=== PATIENT | female | born 2000 | race Two or more races ===

== ENCOUNTER 2021-06-26 08:45 | Emergency (ER) | payer SELFPAY ==
[~2021-06-26] VITALS: Ht 165.1 cm; Wt 54.4 kg
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
--- NOTE | 2021-06-26 12:15 | NUR ---
Patient discharged to home in stable condition. Written and verbal after care instructions given. Patient verbalizes understanding of instruction.
[2021-06-26 12:16] VITALS: BP 111/76
--- NOTE | 2021-06-26 12:17 | NUR ---
"Pt. Is a 21-year-old female who came from sober living facility [[facility]] for aggressive behavior towards staff. Pt. was oriented x3, alert, and hardly cooperative. During interview, pt. was capable of following directions, made appropriate eye-contact, and appeared well-groomed. Pt.s speech was at a normal rate and pt.s mood irritable. Pt. reported no hx of mental health, substance abuse, suicidal ideation, or homicidal ideation. Pt. denies auditory hallucinations, visual hallucinations, paranoia, or delusions. MARIO explored pt.s living situation. Per pt., she resides at a sober living facility. Pt. stated that she has problems with her roommate and wants a new sober living. SW provided pt. with a list of women sober living. Pt. would have to call for interview. Pt. does not meet criteria for a 5150 hold. Pt. expressed that she wants to go back to her previous sober living facility. Pt. stated that she will take the bus back to facility, MARIO provided pt. with TAP card. Plan: MARIO provided available resources and pt. accepted. Upon discharge, per pt., she will return back to previous facility [[address] [place] [address]]. Resources Provided: Winter Shelters: SPA 2 | [facility] Al[facility]av[facility]: [facility] Address: Confidential (call for location ) Population Served: Coed # of Beds: 57 SPA 4 | [facility] Provider: Home at Last Address: [address] [id number] # of Beds: 49 Population Served: Coed SPA 6 | [facility] Provider: Home at Last Address: [address] [facility] [address] # of Beds: 49 Population Served: Nilsond [facility] Provider: Mikala Russo ARSterling Address: [address] [facility] [address] # of Beds: 20 Population Served: Women [facility] Facility Provider: Home at Last Address: [address] [facility] [address] # of Beds: 30 Population Served: [facility] SPA 8 | [facility] Provider: [facility] Address: [address] [facility] [address] # of Beds: 65 Population Served: Coed Year-round shelters: [place] [address] [place] [address] ; [place] [facility] [address] [place] [address]; [facility] [facility] [address] [facility] [address] Winter Shelters: [facility] Provider: [facility] [place] Address: [address], [address] # of Beds: 47 Population Served: Coed SPA 6 | [facility] Kandace Cohn Gordon Provider: Home at Last Address: [address] [place] [address], [address] # of Beds: 66 Population Served: Coed Samish Gordon Provider: [facility] Address: [address] [facility], [address] # of Beds: 56 Population Served: [facility] [place] [place] Provider: /[facility] Address: [address] [facility], [address] # of Beds: 49 Population Served: Coed SPA 8 | [facility] Provider: First to Serve Address: [address] [facility], [address] # of Beds: 37 Population Served: [facility] Hygiene: [facility]: [address] [place] ; [facility] [facility] [address] [facility] ; [facility] [address] Find[address]Rafael Barrera . Food Resources: [place] [facility] at [facility]- [address] [place]; Meet Each Need with Dignity (MEND) [address] John Aguerooima; [facility] [address] [facility]; [facility] [address] [facility]. Mental Health resources provided: [facility] [address] [place], [place] [address] ; [facility] [address] [facility] [address], [place] [address] ; [facility] [address] [place], [place] [id number] ; [facility] [place], [place] [address] Healthcare Clinics: [facility] [address] [facility], [address] [place]. [place] ; [facility] [address] [facility] [address] [place] [address]; [facility] [place] [address] [facility] [place] [address] [phone] Counseling--Outpatient [facility] [address] [facility], [place] [address] (Specializes in in-depth psychotherapy for emotional distress: anxiety, depression, interpersonal conflicts, life transitions, childhood abuse) [facility] [address] [place] [address] (Assist with solving problem marital difficulties, separation & divorce, aging parents, & grief, chronic & terminal illness) [facility] [address] [place] [address] (Deal with loss & grief, anxiety, marital difficulties) Homebound/Mental Health Services [address] [facility], [address] [place], [place] [address] (Provide in-home mental services to people who are incapable of leaving their homes) [facility] Elder[facility] Senior Service/Resource Center [address] [place] [address] [facility] [address] Emory Rosemary. [facility] [place] [address] PSYCHIATRIC OUTPATIENT SERVICES [facility] Partial Hospitalization and Intensive Outpatient Program (Managed Care and [place] Only)[address] [place] [address] [facility] [phone] [facility] Partial Hospitalization and Outpatient [address] [place], [place] [phone] [facility] [place] Lpp[address] [facility]. [address] [place], [place] [phone] [facility] Partial Hospitalization and Outpatient Psvngeh8[address] [facility] [place], [phone] Substance Abuse resources provided included: [facility] Substance Abuse Self-Helpline ([facility]) ; CRI -HELP [address] [facility]. [place] [address] ; [facility] [address] [facility] [address] ; [facility] [address] [place] [facility] [address] ; [facility] [address] [facility] [address] ; [facility] [address] [facility] [address] ; [facility] [address] [facility] [address] ; [facility] Substance Abuse Helpline([facility] ; [facility] ; [facility] [place]; [facility] [place]; [facility] Rafael nicole; [place]; [facility] Maritzasergio; [facility] Greta; [facility]. [facility] Melissa; Alcoholics Anonymous -SFV; Diana ; Marijuana Anonymous -SFV; Narcotics Anonymous [email or web address];"
== END 2021-06-26 12:16 | disposition home or self-care (01) ==
LOC: ER 08:46
DX: F41.9 Anxiety disorder, unspecified (principal); F19.10 Other psychoactive substance abuse, uncomplicated; F32.A Depression, unspecified

== ENCOUNTER 2022-06-23 17:03 | Emergency (ER) | payer OTHER ==
[~2022-06-23] VITALS: Ht 165.1 cm; Wt 56.7 kg
[2022-06-23 17:18] VITALS: BP 105/60
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
== END 2022-06-23 20:09 | disposition home or self-care (01) ==
LOC: ER 17:11
DX: M47.812 Spondylosis without myelopathy or radiculopathy, cervical region (principal); M54.2 Cervicalgia; R51.9 Headache, unspecified; G89.29 Other chronic pain; Z60.2 Problems related to living alone
CPT/HCPCS: 72050-TC